=== PATIENT | male | born 1980 | race African-American/Black ===

== ENCOUNTER 2020-12-18 12:26 | Emergency (ER) | payer OTHER ==
[2020-12-18 12:31] VITALS: BP 158/89; PULSE 76; TEMP 98.2; BMI 29.4
== END 2020-12-18 12:59 | disposition home or self-care (01) ==
LOC: JERFT 12:26
DX: M54.5 Low back pain (principal); M79.652 Pain in left thigh
CPT/HCPCS: 99281-25

== ENCOUNTER 2021-03-25 13:33 | Emergency (ER) | payer SELFPAY ==
[2021-03-25 13:53] VITALS: BP 141/89; PULSE 77; TEMP 97.6; BMI 30.1
== END 2021-03-25 14:56 | disposition home or self-care (01) ==
LOC: JERFT 13:33
DX: S63.642A Sprain of metacarpophalangeal joint of left thumb, initial encounter (principal); X50.0XXA Overexertion from strenuous movement or load, initial encounter
CPT/HCPCS: 73130-TC-LT-FY; 99283-25